=== PATIENT | male | born 1955 | race Caucasian/White ===

== ENCOUNTER → 2018-08-12 10:29 | Outpatient (CLI) | payer OTHER, SELFPAY ==
[2018-08-12 11:22] LABS: Erythrocyte Sedimentation Rate 1 MM/HR (0-15)
[2018-08-12 11:28] LABS: C-Reactive Protein Quant < 0.5 mg/dL (<1.0); Rheumatoid Factor < 8.6 IU/mL (<12.0)
[2018-08-14 14:08] LABS: HLA B27 NEGATIVE (Negative)
[2018-08-14 18:38] LABS: ANA Screen, IFA Negative (Negative)
== END ==
PROVIDERS: PCP Student in an Organized Health Care Education/Training Program; Visit Provider Podiatrist
DX: M21.6X1 Other acquired deformities of right foot (principal); M72.2 Plantar fascial fibromatosis; M77.50 Other enthesopathy of unspecified foot and ankle
CPT/HCPCS: 36415; 84550; 85651; 86038; 86140; 86430; 86812